=== PATIENT | female | born 2000 | race Two or more races ===

== ENCOUNTER 2018-02-11 09:15 | Emergency (ER) | payer OTHER ==
[2018-02-11 09:32] VITALS: BP 99/60
--- NOTE | 2018-02-11 10:08 | UC ---
Throat Pain/Nasal [place] HPI - HPI Summary HPI Summary: sore throat x 7 days mostly on the right side, c/o fever, chills, n/v no cough , no nasal congestion [facility] , dx with tonsil stones - History of Current Complaint Chief Complaint: UCGeneralIllness Stated Complaint: SORE THROAT Time Seen by Provider: 02/11/18 09:23 Hx Obtained From: Patient Hx Last Menstrual Period: 01/14/18 ?: No Onset/Duration: Gradual Onset, Lasting Days - 7, Still Present Severity: Moderate Pain Intensity: 8 Pain Scale Used: 0-10 Numeric Cough: None Associated Signs & Symptoms: Positive: Negative, Fever. Negative: Dysphagia, FB Sensation, Drooling, Wheezing, Hoarseness, Sinus Discomfort, Nasal Discharge , Rash - Allergies/Home Medications Allergies/Adverse Reactions: Allergies Allergy/AdvReac Type Severity Reaction Status Date / Time acetaminophen [From Tylenol] Allergy Intermediate Hives Verified 02/11/18 09:32 Home Medications: Home Medications NK [No Home Medications Reported] 02/11/18 [History Confirmed 02/11/18] PMH/Surg Hx/FS Hx/Imm Hx Previously Healthy: Yes - Surgical History Surgical History: None - Family History Known Family History: Negative: Diabetes - Social History Alcohol Use: None Substance Use Type: None Smoking Status (MU): Never Smoked Tobacco Review of Systems Constitutional: Fever, Fatigue Skin: Negative Eyes: Negative ENT: Sore Throat Respiratory: Negative Cardiovascular: Negative Is Patient Immunocompromised?: No All Other Systems Reviewed And Are Negative: Yes Physical Exam Triage Information Reviewed: Yes Appearance: Well-Appearing, No Pain Distress, Well-Nourished Vital Signs: Initial Vital Signs Temp 97.8 F 02/11/18 09:26 Pulse 65 02/11/18 09:26 Resp 18 02/11/18 09:26 BP 99/60 02/11/18 09:26 Pulse Ox 100 02/11/18 09:26 Vital Signs Reviewed: Yes Eye Exam: Normal Eyes: Positive: Conjunctiva Clear ENT: Positive: Normal ENT inspection, Hearing grossly normal, Pharyngeal erythema - tonsil stone right tonsil Neck: Positive: Supple, Nontender, Tenderness @ Respiratory: Positive: Chest non-tender, Lungs clear, Normal breath sounds Cardiovascular: Positive: RRR, No Murmur, Pulses Normal Skin Exam: Normal Throat Pain/Nasal Course/Dx - Differential Dx/Diagnosis Provider Diagnoses: pharyngitis Discharge - Sign-Out/Discharge Documenting (check all that apply): Patient Departure All imaging exams completed and their final reports reviewed: No Studies - Discharge Plan Condition: Stable Disposition: HOME Patient Education Materials: Pharyngitis (ED) Referrals: [facility] [place] - Jignesh THRASHER [Primary Care Provider] - 7 Days Additional Instructions: tonsil stone right side cont. with warm salt water gargles take Tylenol as needed for pain - Billing Disposition and Condition Condition: STABLE Disposition: Home
== END 2018-02-11 09:58 | disposition home or self-care (01) ==
LOC: UCEAST 09:15
DX: J02.9 Acute pharyngitis, unspecified (principal); Z88.6 Allergy status to analgesic agent
CPT/HCPCS: 87651; 99211; G0463